=== PATIENT | male | born 1965 | race Caucasian/White ===

== ENCOUNTER 2017-06-25 15:00 | Emergency (ER) | payer MEDICAID ==
[2017-06-25] MEDS ORDERED: DIPHENOXYLATE HCL/ATROP SULF 2.5 MG TABLET PO ONE (15:16)
[2017-06-25] MEDS ORDERED: NORMAL SALINE 1,000 ML IV PRN (15:16)
[2017-06-25 15:31] LABS: Hemoglobin 14.8 gm/dL (13.5-18.0); Mean Cell Volume 88.3 fl (78-100); Mean Corpuscular Hemoglobin 30.4 pg (27-31); Mean Corpuscular Hgb Conc 34.4 g/dl (32-36); Mean Platelet Volume 9.2 fl (6.0-9.5); Neutrophil # 13.1 K/mm3 (1.3-6.0); Neutrophil % 69.5 % (42-75.0); Platelet Count 284 K/mm3 (150-450); Red Blood Count 4.87 M/mm3 (4.7-6.0); Red Cell Distribution Width 12.2 % (11.5-14.0); White Blood Count 18.8 K/mm3 (4.0-10.5)
[2017-06-25 15:44] LABS: Albumin * 3.3 gm/dl (3.4-5.0); Anion Gap 15.7 mmol/L (6.8-13.8); BUN/Creatinine Ratio 14.1 (9.0-21.6); Bilirubin, Total 0.3 mg/dL (0.0-1.1); Ca. Corrected For Albumin 9.4 mg/dL (8.4-10.2); Calcium * 9.2 mg/dL (7.9-10.9); Potassium 3.7 mmol/L (3.4-4.6); Total Protein 7.2 gm/dL (6.2-8.2)
--- NOTE | 2017-06-25 17:27 | ERNOTE ---
Medical Problem HPI - Narrative Date of Service: 06/25/17 - General Chief Complaint: General Assessment Time Seen by Provider: 06/25/17 15:10 Source: patient, family Exam Limitations: no limitations - Immun/Allergies/Home Medications Immunizations: IMMUNIZATION HX Immunizations Up to Date Yes Allergies/Adverse Reactions: Allergies No Known Allergies Allergy (Unverified 06/25/17 15:08) Home Medications: HOME MEDICATIONS Acetaminophen [Arthritis Pain Relief] 650 mg PO Q4H PRN 06/25/17 [Last Taken Unknown] Atorvastatin Calcium 10 mg PO DAILY 06/25/17 [Last Taken Unknown] Diphenoxylate HCl/Atrop Sulf [Lomotil] 2.5 mg PO QID PRN #40 tab 06/25/17 [Last Taken Unknown] Omeprazole 20 mg PO DAILY 06/25/17 [Last Taken Unknown] Polyethylene Glycol 3350 [Miralax] 17 gm PO DAILY 06/25/17 [Last Taken Unknown] levETIRAcetam [Keppra] 1,500 mg PO BID 06/25/17 [Last Taken Unknown] - History of Present History Narrative: patient with recent dx of recurrent brain tumor has had diarrhea for last several days, has been on miralax Timing: constant Severity: moderate - nothing Modifying Factors - (Improves): Present: other - nothing Review of Systems - Review of Systems Constitutional: Present: weakness EYE: Present: no symptoms reported ENT: Present: no symptoms reported Respiratory: Present: no symptoms reported Cardiology: Present: no symptoms reported Gastrointestinal/Abdominal: Present: diarrhea Genitourinary: Present: no symptoms reported Musculoskeletal: Present: no symptoms reported Skin: Present: no symptoms reported Neurological: Present: no symptoms reported Endocrine: Present: no symptoms reported Hematologic/Lymphatic: Present: no symptoms reported - Patient's Past Medical History Patient History - Medical: GERD, Seizures, Other - brain tumor Patient History - Cardiac/Respiratory: Hyperlipidemia, CPAP/BiPAP Home Use, Sleep Apnea Patient History - Cancer: No Hx of Cancer Patient History - Surgical Procedures: Other - brain surgery, Orthopedic Patient History - Other: None - Family History Family History:: no untoward family reactions to anesthesia, no familial bleeding tendencies - Social History Living Situations: spouse Abuse History: No History of abuse Psych History: No pertinent hx Smoking Status: Current every day smoker Have you smoked in the past 12 months: Yes Do you dip or chew tobacco: No Patient requests Smoking Cessation Consult: No Initiate information on Smoking Cessation: No Alcohol Use: rarely - Immunizations Immunizations Up to Date: Yes Physical Exam - Physical Exam General Appearance: Present: mild distress Head Exam: Present: normal inspection, no evidence of injury Eye Exam: Normal inspection: bilateral, PERRL: bilateral, EOMI: bilateral Ears, Nose, Throat: Present: normal ENT inspection Neck: Present: normal inspection, nontender Respiratory: Present: no respiratory distress, normal breath sounds, no accessory muscle use, chest nontender, lungs clear Cardiovascular/Chest: Present: regular rate, rhythm, no murmur, normal peripheral pulses Peripheral Pulses: N=norm/S=strong/W=weak/B=bound/A=absent: Carotid (R): Normal , Carotid (L): Normal, Radial (R): Normal, Radial (L): Normal, Femoral (R): Normal, Femoral (L): Normal, Dorsalis-pedis (R): Normal, Dorsalis-pedis (L): Normal Gastrointestinal/Abdominal: Present: tenderness, abnormal bowel sounds Back Exam: Present: normal inspection, normal range of motion, no CVA tenderness , no vertebral tenderness Extremity Exam: Present: normal inspection, non-tender, normal range of motion, no edema Neurological Exam: Present: alert, oriented, normal mood/affect, no motor/ sensory deficits DTR: N=norm/NB=norm/brisk/A=abs/DD=dull/dimin/HC=hyperactive: Bicep (R): Normal , Bicep (L): Normal, Tricep (R): Normal, Tricep (L): Normal, Knee (R): Normal, Knee (L): Normal, Ankle (R): Normal, Ankle (L): Normal Skin Exam: Present: normal color, warm/dry ED Progress - Results and Orders Patient's Lab Results:: I have reviewed the patient's lab results. - Vital Signs Patient's Vital Signs:: I have reviewed the patient's vital signs. Vital Signs: Vital Signs 06/25/17 06/25/17 15:04 16:09 Temperature 36.5 C Pulse Rate 120 H 114 H Respiratory 16 12 Rate Blood Pressure 126/72 136/80 O2 Sat by Pulse 94 95 Oximetry - Progress/Reassessment Chief Complaint: General Assessment Progress:: Improved Departure - Departure Clinical Impression: Diarrhea Disposition: Home self-care Condition: Good Instructions: Rehydration, Adult, Dehydration in Sports-SportsMed Prescriptions: Diphenoxylate HCl/Atrop Sulf [Lomotil] 2.5 mg PO QID PRN #40 tab PRN Reason: Diarrhea
[2017-06-25 17:38] VITALS: BP 112/84
== END 2017-06-25 17:32 | disposition home or self-care (01) ==
LOC: ER 15:00
DX: R19.7 Diarrhea, unspecified (principal); F17.200 Nicotine dependence, unspecified, uncomplicated